=== PATIENT | female | born 1970 | race Hispanic/Latino ===

== ENCOUNTER 2016-12-18 13:56 | Emergency (ER) | payer OTHER ==
[~2016-12-18] VITALS: Ht 157.5 cm; Wt 65.9 kg
[~2016-12-18 13:56] MED LIST: PRE20 PO
[2016-12-18 13:59] VITALS: BP 126/72; PULSE 73; RESP 10; O2SAT 100
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
[2016-12-18 14:22] VITALS: BP 126/72; PULSE 73; RESP 10; O2SAT 100
[2016-12-18] MEDS ORDERED: Lidocaine 1%-Epi 1:100,000 10 mL Inj SUBQ ONE (14:25)
[2016-12-18] MEDS ORDERED: TdaP Vaccine 0.5 mL Inj IM ONE (14:25)
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
--- NOTE | 2016-12-18 16:13 | DRSVH ---
PROCEDURE: X-RAY CHEST ONE VIEW, PORTABLE ([id number]) INDICATIONS: chest pain TECHNIQUE: One view of the chest was acquired. COMPARISON: None. FINDINGS: Surgical changes and devices: None. Lungs and pleura: No pleural effusions or pneumothorax or pneumomediastinum. Lungs are clear. Mediastinum: Mediastinal contours appear normal. Heart size is normal. Bones and chest wall: No suspicious bony lesions are visible fractures. Overlying soft tissues appe ar unremarkable. IMPRESSION: No acute cardiomediastinal, pulmonary or osseous abnormality. Dictated by: Johnny Vargas M.D. on 12/18/2016 at 16:10 Approved by: Johnny Vargas M.D. on 12/18/2016 at 16:12
[2016-12-18] MEDS ORDERED: Lidocaine 1%-Epi 1:100,000 20 mL Inj ONE (16:29)
[2016-12-18] MEDS ORDERED: HYDR-4003 PO (17:21)
[2016-12-18 18:45] VITALS: BP 109/58; PULSE 94; RESP 12; O2SAT 98
== END 2016-12-18 19:00 ==
LOC: SED 13:56
DX: S01.01XA Laceration without foreign body of scalp, initial encounter (principal); V58.5XXA Driver of pick-up truck or van injured in noncollision transport accident in traffic accident, initial encounter; Y92.411 Interstate highway as the place of occurrence of the external cause; Y93.89 Activity, other specified; Y99.8 Other external cause status; M50.30 Other cervical disc degeneration, unspecified cervical region; Z23 Encounter for immunization

== ENCOUNTER 2016-12-26 11:07 | Emergency (ER) | payer OTHER ==
[~2016-12-26 11:07] MED LIST changes: +HYDR-4003 PO
[2016-12-26 11:18] VITALS: BP 103/69; PULSE 72; RESP 16; O2SAT 99
== END 2016-12-26 11:57 | disposition home or self-care (01) ==
LOC: SED 11:07
DX: Z48.02 Encounter for removal of sutures (principal)